=== PATIENT | male | born 1985 | race Caucasian/White ===

== ENCOUNTER 2021-03-26 14:23 | Emergency (ER) | payer BC, SELFPAY ==
[2021-03-26 16:26] VITALS: BP 146/88; PULSE 79; RESP 16; TEMP 36.8; O2SAT 100; BMI 24.3
--- NOTE | 2021-03-26 16:47 | HMH.EDUTC ---
[facility] – [place] Disposition Clinical Impression: Exposure to COVID-19 virus Disposition: Home, Self-Care Condition on Discharge: Good Instructions: DI for COVID-19 (Suspected or Confirmed ), Coronavirus Disease 2019, Preventing the Spread of Coronavirus Discharge Instructions Additional Instructions: *Monitor Temp, Over the counter Motrin or Tylenol as directed/as needed Tylenol every 4 hours and Motrin every 6 hours (as long as your family doctor has told you that you can take it) for fever or pain. and straight to ER if unable to lower temp less than 101.0 after medication given Follow up IMMEDIATELY for new or worsening symptoms or no Noticeable improvement over the next 48-72 hours. 911 for difficulty breathing or swallowing You were tested for today for COVID19 your test result should be back in the next 24-48 hours, you may call to the [facility] to see if your test results are back in the next 48 hours [phone] [facility] hours are 9am-9pm You was given a handout with instructions for Self Quarantine and Self isolation for while you wait on test results and what to do if they are positive If you are positive the Health Dept will be contacting you also Make sure to take your Vitamins Vit. C Vit D and Zinc if you can take them Referrals: Provider,Referral, MD [Primary Care Provider] - As needed Time of Disposition: 16:51 Medical Decision Making - Danny Inquiry Pt receiving controlled substance: No Danny was queried for this patient: No Vital Signs: 03/26/21 16:26 Temperature 98.3 F Temperature Source Oral Pulse Rate [Left Radial] 79 Respiratory Rate 16 Blood Pressure [Left Arm] 146/88 H Blood Pressure Mean [Left Arm] 107 Blood Pressure Position [Left Arm] Sitting 02 Sat by Pulse Oximetry 100 Oxygen Delivery Method Room Air Orders (Tests/Meds): ORDERS Category Date Time Status Covid-19 Nasal PCR ([facility]) Routine Lab 03/26/21 16:21 Ordered [facility] [place] HPI - General Stated complaint: exposure Time Seen by Provider: 03/26/21 16:47 Mode of Arrival: Ambulatory Limitations: No Limitations Description of Symptoms (Recalled from Triage Doc. by RN): PT REQUESTING A COVID TEST FOR HIS WORK, STATES HE WAS EXPOSED TO A PERSON WHO IS POSITIVE FOR COVID YESTERDAY. PT STATES NO SYMPTOMS HEENT Symptoms (Recalled from RN notes): No Resp Symptoms (Recalled from RN notes): No Skin Symptoms (Recalled from RN notes): No MS Symptoms (Recalled from RN notes): No Functional Status (Recalled from RN notes): N/A - History of Present Illness Provider Complaint: Patient states that he has been around his girlfriend and she tested positive for COVID yesterday State that he is not having any symptoms but due to close contact his work is making him get tested - Related Data Previous Rx's Medication Instructions Recorded amoxicillin 875 mg tablet 875 mg PO BID 10 Days #20 tab 06/24/18 vnijdwgdvkhnqje-mrwugcwiubtrgmh-FE 10 ml PO Q4-6H PRN #200 ml 06/24/18 2 mg-30 mg-10 mg/5 mL oral syrup methylprednisolone 4 mg tablets in See Rx Instructions PO PER PKG DIR 06/24/18 a dose pack #21 tab Azithromycin [Z-Ramses 250mg Tab*] 250 mg PO UD DOSE PK #6 tab 04/01/19 Brompheniramine/Pseudoephed/Dm 5 ml PO Q6HP PRN #240 syrup 04/01/19 [Bromfed Dm Cough Syrup] methylPREDNISolone [Medrol] 4 mg PO DIRECTED 6 Days #21 04/01/19 tab.ds.pk Allergies Allergy/AdvReac Type Severity Reaction Status Date / Time No Known Allergies Allergy Verified 06/24/18 15:13 - Worker's Comp Is this a Worker's Comp case?: No [facility] History - Hepatitis A Screen Drug use history?: No High risk sexual behaviors?: No History of sexually transmitted infection?: No Currently employed?: No Childcare worker?: No Do you have indoor plumbing?: Yes Do you have electricity?: Yes Attestation statement:: This patient has been screened for Hepatitis A risk factors. I have reviewed the patient's past medical history: Yes Other Surgeries: Yes: No Previous Surgery [facility]
[2021-03-26 16:54] VITALS: BP 146/88; PULSE 79; RESP 16; TEMP 36.8; O2SAT 100
== END 2021-03-26 16:56 | disposition home or self-care (01) ==
PROVIDERS: Emergency Provider Nurse Practitioner
DX: Z20.822 Contact with and (suspected) exposure to COVID-19 (principal); F17.210 Nicotine dependence, cigarettes, uncomplicated
CPT/HCPCS: 99202; G0463; U0003

== ENCOUNTER 2021-04-29 13:23 | Emergency (ER) | payer BC, SELFPAY ==
[2021-04-29 13:26] VITALS: BP 152/95; PULSE 94; RESP 16; TEMP 36.9; O2SAT 96; BMI 25.1
--- NOTE | 2021-04-29 14:12 | HMH.EDGENADL ---
ED Disposition Clinical Impression: Dental infection Disposition: Home, Self-Care Condition on Discharge: Good Instructions: DI for Skin Abscess Additional Instructions: Return the emergency room for enlargement of the swelling or any other concerns within 8 hours otherwise follow-up with a dentist within the next week. Prescriptions: Amoxicillin/Potassium Clav [Augmentin 875-125 Tablet] 1 tab PO Q12H 7 Days #14 tab Transmission Status: Pending to [facility] Hydrocod/Acet 5/325 mg [Keiser 5/325mg tablet] 1 tab PO TID PRN 2 Days #6 tab PRN Reason: Mild To Moderate Pain Transmission Status: Received by [facility] Referrals: Provider,Referral, [Primary Care Provider] - - Critical Care Critical Care Time: No Attestation: On 04/29/21, the high probability of a clinically significant, sudden or life threatening deterioration of the following system(s) required my full and direct attention, intervention and personal management. The time I documented below is in addition to time spent performing reported procedures but includes the following listed in this critical care notation. Medical Decision Making - Medical Records Medical records reviewed: Yes: I reviewed the patient's medical records. - Danny Inquiry Pt receiving controlled substance: No Vital Signs: 04/29/21 13:26 Temperature 98.5 F Temperature Source Oral Pulse Rate [Right Radial] 94 H Respiratory Rate 16 Blood Pressure [Right Arm] 152/95 H Blood Pressure Mean [Right Arm] 114 Blood Pressure Source [Right Arm] Automatic Cuff Blood Pressure Position [Right Arm] Sitting 02 Sat by Pulse Oximetry 96 Oxygen Delivery Method Room Air Medical Decision Narrative: 35-year-old male presents with periapical tenderness concerning for dental infection. No concern for Radha's angina at this time. There is no focal fluctuance or area to drain at this time. Recommended antibiotics for treatment and then if it does worsen I told him to come back immediately but otherwise he will follow-up for dental extraction with dentist. General Adult HPI - General Chief complaint: Skin/Abscess/Foreign Body Stated complaint: left side of jaw swollen Time Seen by Provider: 04/29/21 13:25 Mode of Arrival: Ambulatory Limitations: No Limitations Description of Symptoms (Recalled from ER Triage Doc. by RN): pt reports began having L lower jaw swelling yesterday. Pt states no injury, unsure of having any dental issues. Pt denies fevers - History of Present Illness HPI narrative: 35-year-old male presents with left lower jaw tenderness for few days. He says he has had dental pain for the last few days. No fever no chills. No difficulty swallowing or eating. He has mild tenderness to that side tall nonradiating worse with movement of the jaw - Related Data Previous Rx's Medication Instructions Recorded amoxicillin 875 mg tablet 875 mg PO BID 10 Days #20 tab 06/24/18 asxbsztjsclxeqn-jjyuawjqlhipcjn-JA 10 ml PO Q4-6H PRN #200 ml 06/24/18 2 mg-30 mg-10 mg/5 mL oral syrup methylprednisolone 4 mg tablets in See Rx Instructions PO PER PKG DIR 06/24/18 a dose pack #21 tab Azithromycin [Z-Ramses 250mg Tab*] 250 mg PO UD DOSE PK #6 tab 04/01/19 Brompheniramine/Pseudoephed/Dm 5 ml PO Q6HP PRN #240 syrup 04/01/19 [Bromfed Dm Cough Syrup] methylPREDNISolone [Medrol] 4 mg PO DIRECTED 6 Days #21 04/01/19 tab.ds.pk Amoxicillin/Potassium Clav 1 tab PO Q12H 7 Days #14 tab 04/29/21 [Augmentin 875-125 Tablet] Hydrocod/Acet 5/325 mg [Keiser 1 tab PO TID PRN 2 Days #6 tab 04/29/21 5/325mg tablet] Allergies Allergy/AdvReac Type Severity Reaction Status Date / Time No Known Allergies Allergy Verified 06/24/18 15:13 [facility] History - Hepatitis A Screen Drug use history?: No High risk sexual behaviors?: No History of sexually transmitted infection?: No Currently employed?: No Childcare worker?: No Do you have indoor plumbing?
[2021-04-29 14:13] VITALS: BP 142/96; PULSE 81; RESP 20; O2SAT 93
[2021-04-29 14:23] VITALS: BP 142/96; PULSE 75; RESP 20; TEMP 36.9; O2SAT 93
== END 2021-04-29 14:24 | disposition home or self-care (01) ==
PROVIDERS: Emergency Provider Emergency Medicine
DX: K04.7 Periapical abscess without sinus (principal); F17.210 Nicotine dependence, cigarettes, uncomplicated
CPT/HCPCS: 99281

== ENCOUNTER → 2021-09-07 09:00 | Outpatient (CLI) | payer BC, SELFPAY ==
[2021-09-08 10:48] LABS: Covid-19 Nasal PCR Sendout Lex POSITIVE
== END ==
PROVIDERS: Visit Provider Nurse Practitioner
DX: U07.1 COVID-19 (principal)
CPT/HCPCS: C9803; U0004; U0005

== ENCOUNTER 2021-10-07 09:19 | Emergency (ER) | payer BC, SELFPAY ==
[2021-10-07 09:50] VITALS: BP 138/91; PULSE 86; RESP 18; TEMP 36.6; O2SAT 99; BMI 26.4
--- NOTE | 2021-10-07 10:30 | HMH.EDUTC ---
[facility] – [place] Disposition Clinical Impression: Viral syndrome Disposition: Home, Self-Care Condition on Discharge: Good Instructions: DI for Viral Syndrome Additional Instructions: Drink plenty of fluids. Take tylenol or ibuprofen for pain or fever. Take the medications as directed. Follow up with your regular doctor. GO TO THE ER FOR ANY WORSENING SYMPTOMS Quarantine until you know the results of your covid-19 test. Notify your school or workplace of your results and follow their instructions regarding return to work/school. Prescriptions: Brompheniramine/Pseudoephed/Dm [Bromfed Dm Cough Syrup] 5 ml PO Q6HP PRN #240 ml PRN Reason: Cough [facility] Benzonatate [Benzonatate 100mg cap] 100 mg PO TIDP PRN #30 cap PRN Reason: Cough [facility]: [facility] Azithromycin [Z-Ramses 250mg Tab*] 250 mg PO UD DOSE PK #6 tab [facility]: [facility] Referrals: Provider,Referral, [Primary Care Provider] - Forms: Work/School Release Time of Disposition: 10:37 Medical Decision Making - Medical Records Medical records reviewed: No: I reviewed the patient's medical records. - Danny Inquiry Pt receiving controlled substance: No Vital Signs: 10/07/21 09:50 10/07/21 10:42 Temperature 97.8 F 97.8 F Temperature Source Oral Pulse Rate 86 Pulse Rate [Left Radial] 86 Respiratory Rate 18 18 Blood Pressure 138/91 H Blood Pressure [Left Arm] 138/91 H Blood Pressure Mean [Left Arm] 106 Blood Pressure Source [Left Arm] Automatic Cuff Blood Pressure Position [Left Arm] Sitting 02 Sat by Pulse Oximetry 99 Oxygen Delivery Method Room Air - Lab Data Lab Results 10/07/21 09:54: Chlamy pneumoniae PCR Not detected, Adenovirus (PCR) Not detected, B. pertussis DNA (PCR) Not detected, Coronavirus OC43 (PCR) Not detected, Coronavirus HKU1 (PCR) Not detected, Coronavirus 229E (PCR) Not detected, SARS-CoV-2 (PCR) Not detected, Coronavirus NL63 (PCR) Not detected, Human Metapneumovir PCR Not detected, Influenza A (H1) PCR Not detected, Influ A (H1N1/09) PCR Not detected, Influenza A (H3) PCR Not detected, Influenza Type A (PCR) Not detected, Influenza Type B (PCR) Not detected, M. pneumoniae (PCR) Not detected, Parainfluenza 1 (PCR) Not detected, Parainfluenza 2 (PCR) Not detected, Parainfluenza 3 (PCR) Not detected, Parainfluenza 4 (PCR) Not detected, RSV (PCR) Not detected, Entero/Rhino (PCR) Not detected [facility] – [place] HPI - General Stated complaint: fever, chills, sore throat, no taste Time Seen by Provider: 10/07/21 10:30 Mode of Arrival: Ambulatory Source of Information: Patient Limitations: No Limitations Description of Symptoms (Recalled from Triage Doc. by RN): C/O fever, chills, sore throat, loss of taste since this morning. Requesting COVID test. HEENT Symptoms (Recalled from RN notes): Yes (Sore throat, loss of taste) Resp Symptoms (Recalled from RN notes): No Skin Symptoms (Recalled from RN notes): No MS Symptoms (Recalled from RN notes): No Functional Status (Recalled from RN notes): n/a - History of Present Illness Provider Complaint: Requesting COVID test because C/O fever, chills, sore throat, loss of taste since this morning. - Related Data Previous Rx's Medication Instructions Recorded amoxicillin 875 mg tablet 875 mg PO BID 10 Days #20 tab 06/24/18 nphxbgidocjgecx-mewkrvnsyvqvmte-SM 10 ml PO Q4-6H PRN #200 ml 06/24/18 2 mg-30 mg-10 mg/5 mL oral syrup methylprednisolone 4 mg tablets in See Rx Instructions PO PER PKG DIR 06/24/18 a dose pack #21 tab Azithromycin [Z-Ramses 250mg Tab*] 250 mg PO UD DOSE PK #6 tab 04/01/19 Brompheniramine/Pseudoephed/Dm 5 ml PO Q6HP PRN #240 syrup 04/01/19 [Bromfed Dm Cough Syrup] methylPREDNISolone [Medrol] 4 mg PO DIRECTED 6 Days #21 04/01/19 tab.ds.pk Amoxicillin/Potassium Clav 1 tab PO Q12H 7 Days #14 tab 04/29/21 [Augmentin 875-125 Tablet*
[2021-10-07 10:42] VITALS: BP 138/91; PULSE 86; RESP 18; TEMP 36.6; O2SAT 99
[2021-10-07 10:43] LABS: Adenovirus,PCR Not Detected (NotDetected); Bordetella Pertussis Not Detected (NotDetected); Chlamydophila Pneumoniae, PCR Not Detected (NotDetected); Coronavirus 19, PCR Not Detected (NotDetected); Coronavirus 229E Not Detected (NotDetected); Coronavirus NL63 Not Detected (NotDetected); Coronavirus OC43 Not Detected (NotDetected); Coronovirus HKU1,PCR Not Detected (NotDetected); Human Metapneumovirus Not Detected (NotDetected); Influenza A, PCR Not Detected (NotDetected); Influenza AH1, 2009 Not Detected (NotDetected); Influenza AH1, PCR Not Detected (NotDetected); Influenza AH3,PCR Not Detected (NotDetected); Influenza B, PCR Not Detected (NotDetected); Mycoplasma Pneumoniae, PCR Not Detected (NotDetected); Parainfluenza 1, PCR Not Detected (NotDetected); Parainfluenza 2, PCR Not Detected (NotDetected); Parainfluenza 3, PCR Not Detected (NotDetected); Parainfluenza 4, PCR Not Detected (NotDetected); Respiratory Syncytial Virus Not Detected (NotDetected); Rhinovirus/Enterovirus Not Detected (NotDetected)
== END 2021-10-07 10:43 | disposition home or self-care (01) ==
PROVIDERS: Emergency Provider Nurse Practitioner Family
DX: B34.9 Viral infection, unspecified (principal); F17.210 Nicotine dependence, cigarettes, uncomplicated
CPT/HCPCS: 87581; 87632; 87798; 99212; C9803; G0463; U0003; U0005